=== PATIENT | male | born 1965 | race Caucasian/White ===

== ENCOUNTER 2022-03-16 12:58 | Inpatient (IN) | payer MEDICARE ==
[~2022-03-16] VITALS: Ht 195.6 cm; Wt 138.0 kg
[~2022-03-16 12:58] MED LIST: ASPIRIN EC325 MG PO; BUMEX1 MG PO; COLACE100 MG PO; COREG 6.25MG6.25 MG PO; COUMADIN4 MG PO; CYCLOBENZAPRINE10 MG PO; DIGITEK125 MCG PO; ISOSORBIDE MONO60 M1 PO; K-DUR20 MEQ PO; K-TAB ER20 MEQ PO; KEFLEX250 MG PO; LASIX20 MG PO; LASIX40 MG PO; MAG-OXIDE 400M400 MG PO; PERCOCET 5-3251 EACH PO; PRINIVIL20 MG PO; REMERON15 MG PO; VIBRAMYCIN100 MG PO
[2022-03-16 13:59] LABS: EOSINOPHIL 0.9 % (0-5); HCT 42.2 % (42.0-52.0); HGB 13.3 g/dl (13.2-18.0); LYMPHOCYTE 14.8 % (15-48); MCH 28.9 pg (25.0-31.0); MCHC 31.5 g/dL (32.0-36.0); MCV 91.5 fL (78.0-100.0); MONOCYTE 9.9 % (0-12); MPV 11.5 fL (6.0-9.5); NEUTROPHIL 72.9 % (41-80); NRBC 0; PLT 213 K/uL (150-400); RBC 4.61 M/uL (4.70-6.00); RDW 14.6 % (11.5-14.0); WBC 9.6 K/uL (4.0-10.5)
[2022-03-16 14:17] LABS: BILIRUBIN - TOTAL 2.7 mg/dL (0.2-1.0); BUN/CREAT RATIO (CALC) 18.5 RATIO; CREATININE 1.51 mg/dL (0.67-1.17); GLOBULIN (CALCULATION) 5.4 g/dL; POTASSIUM 4.4 mmol/L (3.5-5.1); TOTAL PROTEIN 8.4 g/dL (6.4-8.2)
[2022-03-16 16:10] LABS: BILIRUBIN 1+ mg/dL (NEGATIVE); BLOOD 2+ Ery/uL (NEGATIVE); CLARITY CLEAR (CLEAR); COLOR YELLOW (YELLOW); GLUCOSE (U) NORMAL (NORMAL); LEUKOCYTES NEGATIVE Leu/uL (NEGATIVE); NITRITE NEGATIVE (NEGATIVE); PROTEIN TRACE (LOW) mg/dL (NEGATIVE); SPECIFIC GRAVITY >=1.030 (1.001-1.030)
[2022-03-16 16:19] LABS: BACTERIA TRACE
[2022-03-16 18:23] LABS: INR 1.55 (0.9-1.2); PROTHROMBIN TIME 17.8 SECONDS (11.8-13.4); PTT 37.2 SECONDS (24.4-34.7)
[2022-03-16 18:25] LABS: CORONAVIRUS 2019 SARS-COV-2 NEGATIVE (NEGATIVE); INFLUENZA A NAA NEGATIVE (NEGATIVE)
[2022-03-16] MEDS ORDERED: AMIODARONE HCL200 MG PO (20:40)
[2022-03-16 23:35] LABS: BILIRUBIN NEGATIVE (NEGATIVE); BLOOD 1+ Ery/uL (NEGATIVE); CLARITY CLEAR (CLEAR); COLOR YELLOW (YELLOW); GLUCOSE (U) NORMAL (NORMAL); LEUKOCYTES NEGATIVE Leu/uL (NEGATIVE); NITRITE NEGATIVE (NEGATIVE); PROTEIN NEGATIVE (NEGATIVE); SPECIFIC GRAVITY <=1.005 (1.001-1.030)
[2022-03-16 23:44] LABS: URINARY WBC RARE
[2022-03-16 23:45] LABS: TRANSITIONAL EPITHELIAL CELLS RARE
[2022-03-17 08:13] LABS: BASOPHIL 0.7 % (0-2); EOSINOPHIL 0.2 % (0-5); HCT 45.1 % (42.0-52.0); HGB 13.9 g/dl (13.2-18.0); LYMPHOCYTE 9.4 % (15-48); MCH 28.9 pg (25.0-31.0); MCHC 30.8 g/dL (32.0-36.0); MCV 93.8 fL (78.0-100.0); MONOCYTE 10.6 % (0-12); MPV 11.6 fL (6.0-9.5); NEUTROPHIL 78.2 % (41-80); NRBC 0; PLT 142 K/uL (150-400); RBC 4.81 M/uL (4.70-6.00); RDW 14.6 % (11.5-14.0); WBC 11.8 K/uL (4.0-10.5)
[2022-03-17 09:44] LABS: BUN/CREAT RATIO (CALC) 15.7 RATIO; CREATININE 2.16 mg/dL (0.67-1.17); POTASSIUM 5.2 mmol/L (3.5-5.1)
--- NOTE | 2022-03-17 11:56 | NUR ---
03/17/22 Mr. Meadows lives in a rented apartment in a basement. 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 He does not use any DME. Mr. Meadows requested HH for nursing. However, he is not homebound. Will monitor for 02 needs.
--- NOTE | 2022-03-17 13:06 | NUR ---
03/17/22 A referral was made to [facility] for 02 at 2 L.
[2022-03-18 04:24] LABS: BASOPHIL 0.9 % (0-2); EOSINOPHIL 0.4 % (0-5); HCT 42.4 % (42.0-52.0); HGB 12.8 g/dl (13.2-18.0); LYMPHOCYTE 16.5 % (15-48); MCH 28.3 pg (25.0-31.0); MCHC 30.2 g/dL (32.0-36.0); MCV 93.8 fL (78.0-100.0); MONOCYTE 7.8 % (0-12); MPV 11.7 fL (6.0-9.5); NEUTROPHIL 73.8 % (41-80); NRBC 0; PLT 157 K/uL (150-400); RBC 4.52 M/uL (4.70-6.00); RDW 14.6 % (11.5-14.0); WBC 11.6 K/uL (4.0-10.5)
[2022-03-18 04:32] LABS: INR 2.16 (0.9-1.2); PROTHROMBIN TIME 23.2 SECONDS (11.8-13.4)
[2022-03-18 04:42] LABS: IRON % SATURATION 8.7 %SAT (20-50)
[2022-03-18 05:33] LABS: ALBUMIN 2.9 g/dL (3.4-5.0); BILIRUBIN - TOTAL 2.4 mg/dL (0.2-1.0); BUN/CREAT RATIO (CALC) 14.1 RATIO; CREATININE 3.61 mg/dL (0.67-1.17); FOLIC ACID (SERUM) 16.6 ng/mL (8.6-58.9); GLOBULIN (CALCULATION) 4.6 g/dL; MAGNESIUM 2.3 mg/dL (1.8-2.4); TOTAL PROTEIN 7.5 g/dL (6.4-8.2)
[2022-03-19 04:24] LABS: BASOPHIL 0.5 % (0-2); EOSINOPHIL 1.1 % (0-5); HCT 39.3 % (42.0-52.0); HGB 12.3 g/dl (13.2-18.0); LYMPHOCYTE 14.4 % (15-48); MCHC 31.3 g/dL (32.0-36.0); MCV 92.7 fL (78.0-100.0); MONOCYTE 11.2 % (0-12); MPV 11.6 fL (6.0-9.5); NEUTROPHIL 72.1 % (41-80); NRBC 0; PLT 163 K/uL (150-400); RBC 4.24 M/uL (4.70-6.00); RDW 14.8 % (11.5-14.0); WBC 10.4 K/uL (4.0-10.5)
[2022-03-19 04:33] LABS: INR 2.5 (0.9-1.2); PROTHROMBIN TIME 26.1 SECONDS (11.8-13.4)
[2022-03-19 04:46] LABS: CREATININE 4.94 mg/dL (0.67-1.17); POTASSIUM 5.3 mmol/L (3.5-5.1)
--- NOTE | 2022-03-19 05:48 | NUR ---
PATIENT PLACED ON BIPAP AT 2100 ON 03/18/2022. PATIENT REQUESTED BIPAP TO BE REMOVED @ 0000 ON 03/19/2022. PATIENT PLACED BACK ON BIPAP BY RT @ 0200 ON 03/19/2022.
[2022-03-20 06:11] LABS: BASOPHIL 0.4 % (0-2); EOSINOPHIL 1.3 % (0-5); HCT 38.2 % (42.0-52.0); LYMPHOCYTE 14.1 % (15-48); MCH 28.2 pg (25.0-31.0); MCHC 31.4 g/dL (32.0-36.0); MCV 89.9 fL (78.0-100.0); MONOCYTE 12.1 % (0-12); MPV 11.2 fL (6.0-9.5); NEUTROPHIL 71.8 % (41-80); NRBC 0; PLT 150 K/uL (150-400); RBC 4.25 M/uL (4.70-6.00); RDW 14.9 % (11.5-14.0); WBC 9.6 K/uL (4.0-10.5)
[2022-03-20 06:37] LABS: INR 2.36 (0.9-1.2); PROTHROMBIN TIME 24.9 SECONDS (11.8-13.4)
[2022-03-20 06:38] LABS: CREATININE 5.24 mg/dL (0.67-1.17); MAGNESIUM 2.3 mg/dL (1.8-2.4); POTASSIUM 4.8 mmol/L (3.5-5.1)
--- NOTE | 2022-03-20 13:52 | NUR ---
PT OXYGEN CONCENTRATOR WAS DELIVERED TO [address] [place] [address]. PORTABLE IS IN PT ROOM.
--- NOTE | 2022-03-20 15:26 | NUR ---
PER HUMA WITH [facility] PT WILL NEED TO SEE PRIMARY PHYSICIAN BEFORE HE WILL BE ACCEPTED BY HH HE HAS NOT BEEN SEEN RECENLTY ENOUGH FOR THEM TO SIGN ORDERS.
[2022-03-20 18:20] LABS: URINE CREATININE 56.16 mg/dL (29.00-226.00)
--- NOTE | 2022-03-20 18:25 | NUR ---
PT URINATED 500 ML INTO URINAL BLADDER SCANNED - 140 ML
[2022-03-21 07:38] LABS: BUN/CREAT RATIO (CALC) 20.5 RATIO; CREATININE 3.51 mg/dL (0.67-1.17); POTASSIUM 4.6 mmol/L (3.5-5.1)
[2022-03-21 10:06] LABS: BILIRUBIN NEGATIVE (NEGATIVE); BLOOD TRACE-INTACT Ery/uL (NEGATIVE); CLARITY CLEAR (CLEAR); COLOR YELLOW (YELLOW); GLUCOSE (U) NORMAL (NORMAL); LEUKOCYTES NEGATIVE Leu/uL (NEGATIVE); NITRITE NEGATIVE (NEGATIVE); PROTEIN NEGATIVE (NEGATIVE)
[2022-03-21 10:08] LABS: AMORPHOUS URATES CRYSTALS TRACE; URINARY WBC RARE
[2022-03-21 10:30] LABS: URINE CREATININE 46.09 mg/dL (29.00-226.00); URINE TOTAL PROTEIN-RANDOM 13.5 mg/dL (<11.9)
[2022-03-22 05:26] LABS: PHOSPHORUS 3.8 mg/dL (2.6-4.7); POTASSIUM 4.3 mmol/L (3.5-5.1)
[2022-03-22 05:38] LABS: MAGNESIUM 1.4 mg/dL (1.8-2.4)
[2022-03-22] MEDS ORDERED: ELIQUIS5 MG PO (09:59)
[2022-03-22] MEDS ORDERED: AMIODARONE HCL200 MG PO (12:17)
[2022-03-22] MEDS ORDERED: COREG 6.25MG6.25 MG PO (12:17)
[2022-03-22] MEDS ORDERED: BUMEX1 MG PO (12:17)
[2022-03-22] MEDS ORDERED: TOPROL XL 25MG25 MG PO (12:17)
[2022-03-22] MEDS ORDERED: WARFARIN SODIUM2 MG PO (12:17)
[2022-03-22] MEDS ORDERED: K-TAB ER20 MEQ PO (12:17)
--- NOTE | 2022-03-22 12:27 | NUR ---
03/22 Mr. Meadows does not yet have a PCP; appointment scheduled with Antionette Owen on 04/03. [facility] has agreed to follow-up with [facility] for HH orders. A request was made for social work to be included. - Mr. Meadows does not have a Medicare D plan. A voucher was provided for discharging medications at [facility]. - He was referred to [facility] for Prescription assistance.
[2022-03-22] MEDS ORDERED: MAG-OXIDE 400M400 MG PO (12:53)
--- NOTE | 2022-03-22 15:27 | NUR ---
03/22 3:27 Chiara from [facility]'s office telephoned to report that she is not comfortable seeing Mr. Meadows. It was receommended for an appointment to be scheduled with Dr. Jim. A voicemail was left for Cee, [employer], providing her with the above mentioned information.
== END 2022-03-22 14:35 | disposition home or self-care (01) | DRG 291 ==
LOC: FER 12:58 → FTCU 19:20
PROVIDERS: Emergency Medicine; Internal Medicine Cardiovascular Disease; Internal Medicine Nephrology; Nurse Practitioner Family; ADMIT Internal Medicine
PROC: B24BZZZ Ultrasonography of Heart with Aorta (ICD-10-PCS; 2022-03-17)
PROC: 5A09357 Assistance with Respiratory Ventilation, Less than 24 Consecutive Hours, Continuous Positive Airway Pressure (ICD-10-PCS; principal; 2022-03-18)
PROC: 5A09357 Assistance with Respiratory Ventilation, Less than 24 Consecutive Hours, Continuous Positive Airway Pressure (ICD-10-PCS; 2022-03-19)
PROC: 5A09357 Assistance with Respiratory Ventilation, Less than 24 Consecutive Hours, Continuous Positive Airway Pressure (ICD-10-PCS; 2022-03-20)
PROC: 5A09357 Assistance with Respiratory Ventilation, Less than 24 Consecutive Hours, Continuous Positive Airway Pressure (ICD-10-PCS; 2022-03-21)
DX: I13.0 Hypertensive heart and chronic kidney disease with heart failure and stage 1 through stage 4 chronic kidney disease, or unspecified chronic kidney disease (principal); I50.23 Acute on chronic systolic (congestive) heart failure; N17.0 Acute kidney failure with tubular necrosis; J96.01 Acute respiratory failure with hypoxia; J96.02 Acute respiratory failure with hypercapnia; E87.1 Hypo-osmolality and hyponatremia; E87.2 Acidosis; N18.30 Chronic kidney disease, stage 3 unspecified; I48.0 Paroxysmal atrial fibrillation; I42.8 Other cardiomyopathies; D50.9 Iron deficiency anemia, unspecified; I95.9 Hypotension, unspecified; M19.90 Unspecified osteoarthritis, unspecified site; R31.29 Other microscopic hematuria; F15.10 Other stimulant abuse, uncomplicated; J44.9 Chronic obstructive pulmonary disease, unspecified; N28.89 Other specified disorders of kidney and ureter; R59.0 Localized enlarged lymph nodes; R22.2 Localized swelling, mass and lump, trunk; Z98.890 Other specified postprocedural states; Z79.01 Long term (current) use of anticoagulants; Z79.82 Long term (current) use of aspirin; Z79.899 Other long term (current) drug therapy; Z91.14 Patient's other noncompliance with medication regimen; Z95.810 Presence of automatic (implantable) cardiac defibrillator
CPT/HCPCS: 36415; 36600; 71045; 71046; 76770; 80048; 80053; 80162; 81001; 82150; 82553; 82570; 82607; 82746; 82803; 83540; 83550; 83605; 83690; 83735; 83880; 84100; 84145; 84156; 84300; 84484; 85025; 85610; 85730; 87088; 93005; 94010; 94660; 94667; 94668; 97162; 97166; 97530-GP; J1160; J1650; J1940; J2405; J2916; J3475; U0002